=== PATIENT | female | born 1985 | race African-American/Black ===

== ENCOUNTER 2018-09-21 15:10 | Emergency (ER) | payer MEDICAID ==
[~2018-09-21] VITALS: Ht 172.7 cm; Wt 105.7 kg
--- NOTE | 2018-09-21 15:54 | NUR ---
ED Nurse Note: pt amb steady gait wiht rn assist to brp. able to weight bear well.
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
--- NOTE | 2018-09-21 16:25 | Diagnostic Imaging Report ---
Indication: left shoulder pain Findings: 3 views of the left shoulder were obtained. Alignment of the left shoulder is normal. No acute fracture is identified. Soft tissues are unremarkable. Impression: No acute injury
[2018-09-21] MEDS ORDERED: IBUPROFEN600 MG ORAL (16:43)
[2018-09-21] MEDS ORDERED: ROBAXIN-750750 MG PO (16:43)
--- NOTE | 2018-09-21 17:00 | NUR ---
ER DISCHARGE NOTE: Patient is cleared to be discharged per ERMD, pt is aox4, on room air, with stable vital signs. pt was given dc and prescription instructions, pt was able to verbalize understanding, pt is able to ambulate with steady gait. pt took all belongings.
[2018-09-21 17:27] VITALS: BP 116/75
[2018-09-21 17:30] VITALS: BP 116/75
== END 2018-09-21 17:00 | disposition home or self-care (01) ==
LOC: EDBD 15:10 → EMR 15:42
DX: S40.012A Contusion of left shoulder, initial encounter (principal); S16.1XXA Strain of muscle, fascia and tendon at neck level, initial encounter; V43.52XA Car driver injured in collision with other type car in traffic accident, initial encounter; Y92.410 Unspecified street and highway as the place of occurrence of the external cause; R20.2 Paresthesia of skin
CPT/HCPCS: 99283